=== PATIENT | male | born 2000 | race African-American/Black ===

== ENCOUNTER 2022-12-13 05:11 | Emergency (ER) | payer SELFPAY ==
[2022-12-13 06:07] LABS: CORONAVIRUS COVID-19 NAA NEGATIVE (NEGATIVE); INFLUENZA A NAA NEGATIVE (NEGATIVE); INFLUENZA B NAA NEGATIVE (NEGATIVE); RESPIRATORY SYNCYTIAL VIR NAA NEGATIVE (NEGATIVE)
== END 2022-12-13 06:21 | disposition home or self-care (01) ==
LOC: MW.ED 05:11
DX: B34.9 Viral infection, unspecified (principal); Z20.822 Contact with and (suspected) exposure to COVID-19
CPT/HCPCS: 0241U; 87651; 99283; 99282

== ENCOUNTER 2023-03-21 13:16 | Emergency (ER) | payer SELFPAY | END 2023-03-21 14:15 | disposition left against medical advice (07) | LOC: MW.ED 13:16 | DX: Z53.21 Procedure and treatment not carried out due to patient leaving prior to being seen by health care provider (principal) ==